=== PATIENT | male | born 1975 | race Caucasian/White ===

== ENCOUNTER → 2022-09-02 | Outpatient (CLI) | payer OTHER ==
[~2022-09-02] MED LIST: CALCA500CH PO; CODACE30 PO; DICL25ER PO; LAMO50 PO; LORA1 PO; RXCODACET PO; TRAM50 PO; Vibramycin100 MG PO
[2022-09-02 16:26] LABS: U Amphetamine Screen Not Detected; U Barbituate Screen Not Detected; U Benzodiazapine Screen Not Detected; U Buprenorphine Screen Not Detected; U Cannabinoids Screen Not Detected; U Cocaine Screen Not Detected; U Methadone Screen Not Detected; U Methamphetamine Screen Not Detected; U Opiates Screen Not Detected; U Oxycodone Screen Not Detected; U Phencyclidine Screen Not Detected; U Propoxyphene Screen Not Detected
== END | disposition home or self-care (01) ==
LOC: SLP 12:45
PROVIDERS: Internal Medicine Critical Care Medicine
DX: R40.0 Somnolence (principal)